=== PATIENT | male | born 1975 | race American Indian/Alaskan Native ===

== ENCOUNTER → 2019-12-21 | Emergency (ER) | payer OTHER ==
[~2019-12-21] VITALS: Ht 177.8 cm; Wt 83.7 kg
[~2019-12-21] MED LIST: CYCLOBENZAPRINE10 MG PO
== END ==
LOC: ED 19:57
DX: M54.41 Lumbago with sciatica, right side (principal); I10 Essential (primary) hypertension; Z87.891 Personal history of nicotine dependence
CPT/HCPCS: 99283

== ENCOUNTER 2024-02-04 12:53 | Emergency (ER) | payer OTHER ==
[~2024-02-04] VITALS: Ht 177.8 cm; Wt 77.0 kg
[2024-02-04] MEDS ORDERED: ZESTRIL20 MG PO (13:27)
[2024-02-04] MEDS ORDERED: JARDIANCE25 MG PO (13:27)
[2024-02-04] MEDS ORDERED: LIPITOR20 MG PO (13:27)
[2024-02-04] MEDS ORDERED: LANTUS100 UNITS/ SUB-Q (13:27)
[2024-02-04] MEDS ORDERED: HYDROCODONE/ACETA 7.5/325 TAB PO ONE (13:45)
[2024-02-04 14:57] VITALS: BP 142/89
== END 2024-02-04 14:57 | disposition home or self-care (01) ==
LOC: ED 12:53
DX: S33.5XXA Sprain of ligaments of lumbar spine, initial encounter (principal); I10 Essential (primary) hypertension; Z87.891 Personal history of nicotine dependence; Z79.4 Long term (current) use of insulin; Z79.84 Long term (current) use of oral hypoglycemic drugs; Z79.899 Other long term (current) drug therapy; W01.0XXA Fall on same level from slipping, tripping and stumbling without subsequent striking against object, initial encounter
CPT/HCPCS: 72100; 99283; A9270

== ENCOUNTER 2024-02-26 13:31 | Emergency (ER) | payer BC, OTHER ==
[~2024-02-26] VITALS: Ht 177.8 cm; Wt 75.1 kg
[~2024-02-26 13:31] MED LIST changes: +JARDIANCE25 MG PO; +LANTUS100 UNITS/ SUB-Q; +LIPITOR20 MG PO; +ZESTRIL20 MG PO
--- OUTSIDE RECORDS SUMMARY | 2024-02-26 13:37 | XMS ---
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 Jessica VISIT COUNT (12 MO.) 2 [facility] TOTAL 2 NOTE: Visits indicate total known visits. ED/UCC VISIT TRACKING (12 MO.) 02/26/2024 13:[address] [facility] [place] TYPE: Emergency COMPLAINT: - CHEST PAIN 02/04/2024 12:[address] [facility] [place] TYPE: Emergency COMPLAINT: - BACK PAIN DIAGNOSES: - Essential (primary) hypertension - Fall on same level from slipping, tripping and stumbling without subsequent striking against object, initial encounter - retirement (current) use of insulin - technician terminal and repeater (current) use of oral hypoglycemic drugs - Low back pain, unspecified - Other mcc (current) drug therapy - Personal history of nicotine dependence - Sprain of ligaments of lumbar spine, initial encounter INPATIENT VISIT TRACKING (12 MO.) No inpatient visits to display in this time frame [email or web address]
[2024-02-26] MEDS ORDERED: NITROGLYCERIN 0.4 MG SUBL SL PRN (13:45)
[2024-02-26] MEDS ORDERED: ASPIRIN 81 MG CHEW PO ONE (13:45)
[2024-02-26 13:46] LABS: BASOPHILS 0.4 % (0-2); EOSINOPHILS 0.5 % (0-6); HEMATOCRIT 48.1 % (35.0-50.0); HEMOGLOBIN 16.6 g/dL (12.0-18.0); LYMPHOCYTES 22.4 % (24-44); MCH 32.1 (27-36); MCHC 34.5 g/dl (30-36); NEUTROPHILS 71.7 % (39-80); PLATELET COUNT 337 K/uL (140-440); RBC 5.18 M/ul (4.3-5.7); RDW 13.7 (10.5-15.0)
[2024-02-26] MEDS ORDERED: ROSUVASTATIN CA20 MG PO (13:49)
[2024-02-26 14:05] LABS: ALBUMIN 4.6 g/dL (3.4-5.0); ALBUMIN/GLOBULIN RATIO 1.28 (1.1-2.4); ALKALINE PHOSPHATASE 57 U/L (46-116); ALT (SGPT) 32 U/L (14-59); ANION GAP 16.9 (7-21); AST (SGOT) 16 U/L (15-37); BILIRUBIN, TOTAL 0.7 ng/dL (0.2-1.0); BUN/CREATININE RATIO 19.31 (6.0-28.6); CALCIUM 9.3 mg/dL (8.5-10.1); CARBON DIOXIDE 27 mmol/L (21-32); CHLORIDE 100 mmol/L (98-107); CREATININE, SERUM 0.88 mg/dL (0.70-1.30); GLOMERULAR FILTRATION RATE,EST 107 mL/min (>60); MAGNESIUM 1.9 mg/dL (1.8-2.4); POTASSIUM 3.9 mmol/L (3.5-5.1); PROTEIN, TOTAL 8.2 g/dL (6.4-8.2); UREA NITROGEN 17 mg/dL (7-18)
[2024-02-26] MEDS ORDERED: LORazepam 2 MG/ML VIAL IV ONE (14:15)
[2024-02-26] MEDS ORDERED: HYDROXYZINE HCL25 MG PO (15:14)
[2024-02-26 15:36] VITALS: BP 142/93
--- NOTE | 2024-02-27 10:17 | EKG ---
[facility] [address] [place], [place] [address] Signed Sinus tachycardia Otherwise normal ECG No previous ECGs available Confirmed by Jose Elizabeth DO ([id number]) on 02/27/2024 10:17:33 AM Electronically Signed By: JOSE ELIZABETH DO 02/27/24 1017 PATIENT NAME: BALWINDER YBARRA Electrocardiogram DATE OF : 77 PHYSICIAN: JOSE ELIZABETH DO REPORT #: [id number] REPORT IS CONFIDENTIAL AND NOT TO BE RELEASED WITHOUT AUTHORIZATION
== END 2024-02-26 15:15 | disposition home or self-care (01) ==
LOC: ED 13:31
PROVIDERS: Emergency Medicine
DX: R07.2 Precordial pain (principal); F41.9 Anxiety disorder, unspecified; E11.9 Type 2 diabetes mellitus without complications; I10 Essential (primary) hypertension; Z87.891 Personal history of nicotine dependence; Z79.84 Long term (current) use of oral hypoglycemic drugs; Z79.4 Long term (current) use of insulin; Z79.899 Other long term (current) drug therapy
CPT/HCPCS: 36415; 71045; 80053; 83735; 84484; 85025; 85379; 93005; 93010; 96374; 99285-25; A9270; J2060

== ENCOUNTER 2024-03-06 12:52 | Emergency (ER) | payer BC, OTHER ==
[~2024-03-06] VITALS: Ht 177.8 cm; Wt 74.4 kg
[~2024-03-06 12:52] MED LIST changes: +HYDROXYZINE HCL25 MG PO; +ROSUVASTATIN CA20 MG PO
--- OUTSIDE RECORDS SUMMARY | 2024-03-06 12:59 | XMS ---
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 Jessica VISIT COUNT (12 MO.) 3 [facility] TOTAL 3 NOTE: Visits indicate total known visits. ED/UCC VISIT TRACKING (12 MO.) 03/06/2024 12:53 [facility] TYPE: Emergency COMPLAINT: - COLD SYMTOMPS 02/26/2024 13:31 [facility] TYPE: Emergency COMPLAINT: - CHEST PAIN DIAGNOSES: - Anxiety disorder, unspecified - Chest pain, unspecified - Essential (primary) hypertension - nursing home (current) use of insulin - nursing home (current) use of oral hypoglycemic drugs - Other instructional assistant (current) drug therapy - Personal history of nicotine dependence - Precordial pain - Precordial pain - Type 2 diabetes mellitus without complications 02/04/2024 12:54 [facility] TYPE: Emergency COMPLAINT: - BACK PAIN DIAGNOSES: - Essential (primary) hypertension - Fall on same level from slipping, tripping and stumbling without subsequent striking against object, initial encounter - nursing home (current) use of insulin - nursing home (current) use of oral hypoglycemic drugs - Low back pain, unspecified - Other instructional assistant (current) drug therapy - Personal history of nicotine dependence - Sprain of ligaments of lumbar spine, initial encounter INPATIENT VISIT TRACKING (12 MO.) No inpatient visits to display in this time frame [email or web address]
[2024-03-06 13:53] LABS: CORONAVIRUS COVID-19 AG NEGATIVE (NEGATIVE); INFLUENZA A AG NEGATIVE (NEGATIVE); INFLUENZA B AG NEGATIVE (NEGATIVE)
[2024-03-06] MEDS ORDERED: ONDANSETRON ODT8 MG PO (15:26)
[2024-03-06] MEDS ORDERED: ONDANSETRON 4 MG TAB ODT SL ONE (15:30)
[2024-03-06 15:39] VITALS: BP 133/83
== END 2024-03-06 15:39 | disposition home or self-care (01) ==
LOC: ED 12:52
PROVIDERS: Emergency Medicine
DX: J20.8 Acute bronchitis due to other specified organisms (principal); I10 Essential (primary) hypertension; E78.00 Pure hypercholesterolemia, unspecified; E11.9 Type 2 diabetes mellitus without complications; Z87.891 Personal history of nicotine dependence; Z79.4 Long term (current) use of insulin; Z79.899 Other long term (current) drug therapy
CPT/HCPCS: 36415; 99283; A9270

== ENCOUNTER 2024-04-10 12:07 | Emergency (ER) | payer OTHER, BC ==
[~2024-04-10] VITALS: Ht 177.8 cm; Wt 74.4 kg
[~2024-04-10 12:07] MED LIST changes: +ONDANSETRON ODT8 MG PO
[2024-04-10] MEDS ORDERED: HYDROmorphone HCL 1 MG/ML SYR IV ONE ×2 (14:15→18:00)
[2024-04-10 18:20] VITALS: BP 158/98
== END 2024-04-10 18:26 | disposition short-term general hospital (02) ==
LOC: ED 12:07
DX: S39.92XA Unspecified injury of lower back, initial encounter (principal); R32 Unspecified urinary incontinence; M51.26 Other intervertebral disc displacement, lumbar region; R26.2 Difficulty in walking, not elsewhere classified; I10 Essential (primary) hypertension; E11.9 Type 2 diabetes mellitus without complications; E78.00 Pure hypercholesterolemia, unspecified; Z87.891 Personal history of nicotine dependence; Z79.4 Long term (current) use of insulin; Z79.899 Other long term (current) drug therapy; W01.0XXA Fall on same level from slipping, tripping and stumbling without subsequent striking against object, initial encounter
CPT/HCPCS: 51798; 72100; 72131; 72170; 96374; 96376; 99285-25; J1171

== ENCOUNTER 2024-04-21 11:34 | Emergency (ER) | payer BC, OTHER ==
[~2024-04-21] VITALS: Ht 177.8 cm; Wt 74.6 kg
--- OUTSIDE RECORDS SUMMARY | 2024-04-21 11:41 | XMS ---
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 [place] - 2 Visits in 30 Days CARE PROVIDERS SAYDA HENLEY Internal Medicine Current PHONE: Unknown Rashid has no Care Guidelines for this patient. Jessica VISIT COUNT (12 MO.) [address] [place] [address] TOTAL 6 NOTE: Visits indicate total known visits. ED/C VISIT TRACKING (12 MO.) 04/21/2024 11:34 [facility] TYPE: Emergency COMPLAINT: - BACK PAIN 04/10/2024 19:20 [facility] TYPE: Emergency DIAGNOSES: - Dorsalgia, unspecified - Other disturbances of skin sensation - Other symptoms and signs involving the musculoskeletal system - Unspecified fall, initial encounter - Fall - Low Back Pain - New incontinence 04/10/2024 12:08 [facility] TYPE: Emergency COMPLAINT: - FALL DIAGNOSES: - Difficulty in walking, not elsewhere classified - Essential (primary) hypertension - Fall on same level from slipping, tripping and stumbling without subsequent striking against object, initial encounter - 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 - Other computer terminal operator (current) drug therapy - Personal history of nicotine dependence - Pure hypercholesterolemia, unspecified - Type 2 diabetes mellitus without complications 02/26/2024 13:31 [facility] TYPE: Emergency COMPLAINT: - CHEST PAIN DIAGNOSES: - Anxiety disorder, unspecified - Chest pain, unspecified - Essential (primary) hypertension - halfway (current) use of insulin - halfway (current) use of oral hypoglycemic drugs - Other computer terminal operator (current) drug therapy - Personal history of nicotine dependence - Precordial pain - Precordial pain - Type 2 diabetes mellitus without complications 02/04/2024 12:54 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 - truck terminal manager (current) use of oral hypoglycemic drugs - Low back pain, unspecified - Other computer terminal operator (current) drug therapy - Personal history of nicotine dependence - Sprain of ligaments of lumbar spine, initial encounter INPATIENT VISIT TRACKING (12 MO.) 04/10/2024 19:20 [facility] TYPE: Internal Medicine DIAGNOSES: - Dorsalgia, unspecified - Other disturbances of skin sensation - Other symptoms and signs involving the musculoskeletal system - Radiculopathy, lumbar region - Spinal stenosis, lumbar region without neurogenic claudication - Unspecified fall, initial encounter [email or web address]
[2024-04-21] MEDS ORDERED: DEXAMETHASONE4 MG PO (12:30)
[2024-04-21] MEDS ORDERED: LIDOCAINE1 EACH TD (12:30)
[2024-04-21] MEDS ORDERED: LISINOPRIL20 MG PO (12:30)
[2024-04-21] MEDS ORDERED: AMLODIPINE BESYL5 MG PO (12:30)
[2024-04-21] MEDS ORDERED: CELECOXIB200 MG PO (12:30)
[2024-04-21] MEDS ORDERED: PREGABALIN50 MG PO (12:30)
[2024-04-21] MEDS ORDERED: METHOCARBAMOL750 MG PO (12:31)
[2024-04-21 12:32] VITALS: BP 168/93
== END 2024-04-21 12:32 | disposition home or self-care (01) ==
LOC: ED 11:34
DX: S39.92XD Unspecified injury of lower back, subsequent encounter (principal); X58.XXXD Exposure to other specified factors, subsequent encounter; I10 Essential (primary) hypertension; E78.00 Pure hypercholesterolemia, unspecified; E11.9 Type 2 diabetes mellitus without complications; Z87.891 Personal history of nicotine dependence; Z79.4 Long term (current) use of insulin; Z79.1 Long term (current) use of non-steroidal anti-inflammatories (NSAID); Z79.899 Other long term (current) drug therapy
CPT/HCPCS: 99281

== ENCOUNTER 2024-05-26 09:34 | Emergency (ER) | payer BC, OTHER ==
[~2024-05-26] VITALS: Ht 177.8 cm; Wt 72.0 kg
[~2024-05-26 09:34] MED LIST changes: +AMLODIPINE BESYL5 MG PO; +CELECOXIB200 MG PO; +DEXAMETHASONE4 MG PO; +LIDOCAINE1 EACH TD; +LISINOPRIL20 MG PO; +METHOCARBAMOL750 MG PO; +PREGABALIN50 MG PO
--- OUTSIDE RECORDS SUMMARY | 2024-05-26 09:40 | XMS ---
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 Jessica VISIT COUNT (12 MO.) [address] [facility] [address] [place], [place] [address] TOTAL 7 NOTE: Visits indicate total known visits. ED/C VISIT TRACKING (12 MO.) 05/26/2024 09:34 [facility] TYPE: Emergency COMPLAINT: - NAUSEA 04/21/2024 11:34 [facility] TYPE: Emergency COMPLAINT: - BACK PAIN DIAGNOSES: - Dorsalgia, unspecified - Essential (primary) hypertension - Exposure to other specified factors, subsequent encounter - care home (current) use of insulin - care home (current) use of non-steroidal anti-inflammatories (NSAID) - Other fdc (current) drug therapy - Personal history of nicotine dependence - Pure hypercholesterolemia, unspecified - Type 2 diabetes mellitus without complications - Unspecified injury of lower back, subsequent encounter 04/10/2024 19:20 [facility] TYPE: Emergency DIAGNOSES: - Dorsalgia, unspecified - [...] subsequent striking against object, initial encounter - care home (current) use of insulin - Low back pain, unspecified - Other intervertebral disc displacement, lumbar region - Other fdc (current) drug therapy - Personal history of nicotine dependence - Pure hypercholesterolemia, unspecified - Type 2 diabetes mellitus without complications - Unspecified injury of lower back, initial encounter - Unspecified urinary incontinence 03/06/2024 12:53 [facility] TYPE: Emergency COMPLAINT: - COLD SYMTOMPS DIAGNOSES: - Acute bronchitis due to other specified organisms - Cough, unspecified - Essential (primary) hypertension - long term care pharmacist (current) use of insulin - Other supervisor long goods (current) drug therapy - Personal history of nicotine dependence - Pure hypercholesterolemia, unspecified - Type 2 diabetes mellitus without complications 02/26/2024 13:31 [facility] [place] TYPE: Emergency COMPLAINT: - CHEST PAIN DIAGNOSES: - Anxiety disorder, unspecified - Chest pain, unspecified - Essential (primary) hypertension - care home (current) use of insulin - care home (current) use of oral hypoglycemic drugs - Other fdc (current) drug therapy - Personal history of nicotine dependence - Precordial pain - Precordial pain - Type 2 diabetes mellitus without complications 02/04/2024 12:54 [facility] TYPE: Emergency COMPLAINT: - BACK PAIN DIAGNOSES: - Essential (primary) hypertension - Fall on same level from slipping, tripping and stumbling without subsequent striking against object, initial encounter - care home (current) use of insulin - care home (current) use of oral hypoglycemic drugs - Low back pain, unspecified - Other fdc (current) drug therapy - Personal history of nicotine dependence - Sprain of ligaments of lumbar spine, initial encounter INPATIENT VISIT TRACKING (12 MO.) [facility] DIAGNOSES: - Dorsalgia, unspecified - Other disturbances of skin sensation - Other symptoms and signs involving the musculoskeletal system - Radiculopathy, lumbar region - Spinal stenosis, lumbar region without neurogenic claudication - Unspecified fall, initial encounter [email or web address]
[2024-05-26] MEDS ORDERED: SODIUM CHLORIDE 0.9% 2,160 ML IV PRN (09:45)
[2024-05-26] MEDS ORDERED: CEFTRIAXONE SODIUM 2 GM in SODIUM CHLORIDE 0.9% 100 ML IV ONE (09:45)
[2024-05-26 09:54] LABS: BASOPHILS 0.1 % (0-2); EOSINOPHILS 0.7 % (0-6); HEMATOCRIT 51.2 % (35.0-50.0); HEMOGLOBIN 17.8 g/dL (12.0-18.0); LYMPHOCYTES 3.1 % (24-44); MCHC 34.7 g/dl (30-36); MCV 95.1 fl (81-99); MONOCYTES 2.7 % (0-12); NEUTROPHILS 93.4 % (39-80); PLATELET COUNT 302 K/uL (140-440); RBC 5.38 M/ul (4.3-5.7)
[2024-05-26] MEDS ORDERED: ondansetron HCL 4 MG/2 ML VIAL IV ONE (10:00)
[2024-05-26] MEDS ORDERED: KETOROLAC TROMETHAMINE 15 MG/ML VIAL IV ONE (10:00)
[2024-05-26 10:08] LABS: INR 0.94 (0.80-1.30); PARTIAL THROMBOPLASTIN TIME 23.8 Sec (22.9-41.3)
[2024-05-26 10:10] LABS: ALBUMIN 4.4 g/dL (3.4-5.0); ALBUMIN/GLOBULIN RATIO 1.26 (1.1-2.4); ANION GAP 16.8 (7-21); BILIRUBIN, TOTAL 1.2 mg/dL (0.2-1.0); BUN/CREATININE RATIO 23.8 (6.0-28.6); CALCIUM 8.8 mg/dL (8.5-10.1); CREATININE, SERUM 1.26 mg/dL (0.70-1.30); POTASSIUM 4.8 mmol/L (3.5-5.1); PROTEIN, TOTAL 7.9 g/dL (6.4-8.2)
[2024-05-26 10:14] LABS: LACTIC ACID, BLOOD 2.4 mmol/L (0.4-2.0)
[2024-05-26] MEDS ORDERED: JARDIANCE25 MG PO (10:38)
[2024-05-26 11:13] LABS: BILIRUBIN, URINE NEGATIVE (negative); BLOOD/HGB, URINE NEGATIVE (Negative); KETONE, URINE NEGATIVE (Negative); LEUK ESTERASE, URINE NEGATIVE (negative); NITRITE, URINE NEGATIVE (negative)
[2024-05-26 11:21] LABS: BACTERIA, URINE NONE SEEN /hpf (negative); CRYSTALS, URINE NONE SEEN (0-1+); EPITHELIAL CELLS, URINE 0 /lpf (0-1+); RED BLOOD CELLS, URINE 0-1 /hpf (0-5); WHITE BLOOD CELLS, URINE 0-1 /HPF (0-5)
[2024-05-26 11:22] LABS: CASTS, URINE HYALINE 2+ \\lpf; COLLECTION TYPE, URINE CLEAN CATCH; REFLEX CULTURE, URINE No (No)
[2024-05-26 11:29] LABS: LACTIC ACID, BLOOD 2.7 mmol/L (0.4-2.0)
[2024-05-26] MEDS ORDERED: SODIUM CHLORIDE 0.9% 1,000 ML IV PRN (11:45)
[2024-05-26] MEDS ORDERED: ONDANSETRON ODT8 MG PO (15:53)
[2024-05-26 16:04] VITALS: BP 137/93
--- NOTE | 2024-05-27 10:37 | EKG ---
[facility] [address] [place] [address] Signed Sinus tachycardia Otherwise normal ECG When compared with ECG of 26-FEB-2024 13:34, No significant change was found Confirmed by Jose Elizabeth DO ([id number]) on 05/27/2024 10:37:37 AM Electronically Signed By: JOSE ELIZABETH DO 05/27/24 1037 PATIENT NAME: BALWINDER YBARRA Electrocardiogram DATE OF : 77 PHYSICIAN: JOSE ELIZABETH DO REPORT #: [id number] REPORT IS CONFIDENTIAL AND NOT TO BE RELEASED WITHOUT AUTHORIZATION
== END 2024-05-26 16:04 | disposition home or self-care (01) ==
LOC: ED 09:34
PROVIDERS: Emergency Medicine
DX: A08.4 Viral intestinal infection, unspecified (principal); Z87.891 Personal history of nicotine dependence; I10 Essential (primary) hypertension
CPT/HCPCS: 36415; 71045; 80053; 81001; 83036; 83605; 85025; 85610; 85730; 87040; 87077; 93005; 93010; 96365; 96375; 99284-25; J0696; J1885; J2405; J7030